=== PATIENT | male | born 1965 | race American Indian/Alaskan Native ===

== ENCOUNTER 2016-04-11 18:07 | Emergency (ER) | payer OTHER ==
[2016-04-11] MEDS ORDERED: DUONEB 0.5 MG-3 MG/3 ML SOLN IH ONE (19:49)
[2016-04-11] MEDS: DUONEB 0.5 MG-3 MG/3 ML SOLN IH ONE (19:57)
--- NOTE | 2016-04-12 01:27 | Emergency Department Report ---
ED General Adult HPI - General Chief complaint: Sore Throat Stated complaint: THROAT PROBLEMS/UNABLE TO COUGH Time Seen by Provider: 04/12/16 01:18 Source: patient Mode of arrival: Ambulatory Limitations: No Limitations - History of Present Illness Initial comments: This is a pleasant healthy gentleman who indicates he woke up this morning feeling sensation of something in the posterior part portion of his throat. He looked the mirror and noted his uvula was quite edematous. He denies any pain associated with this. His biggest complaint is that her body sensation in the back of his throat. He does endorse that he may have ingested some seafood yesterday which he is allergic to. He also endorses that he was yelling a lot during the football game. Onset/Timin -: days(s) Location: mouth Radiation: non-radiation Severity scale (0 -10): 0 Consistency: other (improving) Improves with: none Worsens with: none Associated Symptoms: denies other symptoms Treatments Prior to Arrival: none - Related Data Previous Rx's Medication Instructions Recorded Last Taken Type predniSONE [Deltasone] 3 tab PO QDAY #6 tablet 04/12/16 Unknown Rx Allergies Allergy/AdvReac Type Severity Reaction Status Date / Time No Known Allergies Allergy Verified 04/11/16 19:40 ED Review of Systems ROS: Stated complaint: THROAT PROBLEMS/UNABLE TO COUGH Other details as noted in HPI Constitutional: denies: chills, fever Eyes: denies: eye pain, eye discharge, vision change ENT: other (fb sensation in back of throat). denies: ear pain, throat pain Respiratory: denies: cough, shortness of breath, wheezing Cardiovascular: denies: chest pain, palpitations Endocrine: no symptoms reported Gastrointestinal: denies: abdominal pain, nausea, diarrhea Genitourinary: denies: urgency, dysuria Musculoskeletal: denies: back pain, joint swelling, arthralgia Skin: denies: rash, lesions Neurological: denies: headache, weakness, paresthesias Psychiatric: denies: anxiety, depression Hematological/Lymphatic: denies: easy bleeding, easy bruising ED Past Medical Hx - Past Medical History Previous Medical History?: Yes Hx Hypertension: Yes Hx Asthma: Yes - Surgical History Past Surgical History?: Yes Additional Surgical History: open heart at . - Medications Home Medications: Home Medications Medication Instructions Recorded Confirmed Last Taken Type predniSONE [Deltasone] 3 tab PO QDAY #6 tablet 04/12/16 Unknown Rx ED Physical Exam - General Limitations: No Limitations General appearance: alert, in no apparent distress - Head Head exam: Present: atraumatic, normocephalic - Eye Eye exam: Present: normal appearance - ENT ENT exam: Present: mucous membranes moist, other (posterior pharynx with no erythema. Uvula is noted to be mildly edematous. 1-1/2 cm in length. And somewhat thin) - Neck Neck exam: Present: normal inspection. Absent: lymphadenopathy - Respiratory Respiratory exam: Present: normal lung sounds bilaterally. Absent: respiratory distress - Cardiovascular Cardiovascular Exam: Present: regular rate, normal rhythm. Absent: systolic murmur, diastolic murmur, rubs, gallop - GI/Abdominal GI/Abdominal exam: Present: soft, normal bowel sounds - Rectal Rectal exam: Present: deferred - Extremities Exam Extremities exam: Present: normal inspection - Back Exam Back exam: Present: normal inspection - Neurological Exam Neurological exam: Present: alert, oriented X3 - Psychiatric Psychiatric exam: Present: normal affect, normal mood - Skin Skin exam: Present: warm, dry, intact, normal color. Absent: rash ED Course Vital Signs 04/11/16 19:34 Temperature 98 F Pulse Rate 71 Respiratory 18 Rate Blood Pressure 148/100 O2 Sat by Pulse 99 Oximetry - Reevaluation(s) Reevaluation #1: 04/12/16 01:39 Mild edema of the uvula noted. I am more suspicious of trauma related from yelling rather than the allergic component. We'll cover for both fell. Given steroid dose here. While the uvula is large enough to cause some sensation of abnormality, it is not that large that I have concern for a respiratory compromise. He do not suspect infectious etiology there is no pharyngeal erythema. There is no adenopathy. Patient is afebrile. Patient given reassurance safe for home. Critical care attestation.: If time is entered above; I have spent that time in minutes in the direct care of this critically ill patient, excluding procedure time. ED Disposition Clinical Impression: Uvular edema Disposition: DISCHARGED TO HOME OR SELFCARE Is pt being admited?: No Does the pt Need Aspirin: No Condition: Stable Additional Instructions: Return if you feel you are having increased swelling of the uvula or the posterior portion of your throat. Avoid yelling and seen in straining her voice. Prescriptions: predniSONE [Deltasone] 3 tab PO QDAY #6 tablet Referrals: PRIMARY CARE, [Primary Care Provider] - 3-5 Days Time of Disposition: 01:26
[2016-04-12] MEDS: DELTASONE PO ONE (01:45)
[2016-04-12 02:03] VITALS: BP 147/87
== END 2016-04-12 02:02 | disposition home or self-care (01) ==
LOC: ED 18:07
DX: K13.79 Other lesions of oral mucosa (principal); I10 Essential (primary) hypertension; J45.909 Unspecified asthma, uncomplicated
CPT/HCPCS: 99283; J7512